=== PATIENT | female | born 1995 | race Caucasian/White ===

== ENCOUNTER 2016-12-28 11:06 | Emergency (ER) | payer SELFPAY ==
[~2016-12-28] VITALS: Ht 172.7 cm; Wt 83.9 kg
--- NOTE | 2016-12-28 11:11 | NUR ---
PT BIB [facility] FOR PSYCH EVAL D/T PT WALKING INTO TRAFFIC. PT A/OX4 AND DENIES SI/HI, HOWEVER PT'S BOYFRIEND REPORTS THAT THIS IS A SUICIDE ATTEMPT. DENIES PHYSICAL COMPLAINTS. NAD NOTED. IN ER BED 12, COMPLIANT WITH STAFF INSTRUCTION.
--- NOTE | 2016-12-28 11:15 | NUR ---
CALLED NURSING SUP. FOR A SITTER
--- NOTE | 2016-12-28 11:16 | NUR ---
CALLED [facility] FOR PSYCH EVAL, ETA 45 MIN
--- NOTE | 2016-12-28 11:18 | NUR ---
PLACED ON 1 POINT RESTRAINT PER MD UNTIL A SITTER IS AVAILABLE
[2016-12-28 13:00] VITALS: BP 128/75
--- NOTE | 2016-12-28 14:30 | NUR ---
Patient eloped from facility. ER MD notified.
== END 2016-12-28 14:48 | disposition left against medical advice (07) ==
LOC: ER 11:09
DX: Z00.8 Encounter for other general examination (principal)
CPT/HCPCS: A4606; Z7610